=== PATIENT | male | born 1950 | race Caucasian/White ===

== ENCOUNTER 2022-07-01 13:56 | Outpatient (RCR) | payer MEDICARE | END 2022-07-30 | LOC: RESP 13:56 | DX: J44.9 Chronic obstructive pulmonary disease, unspecified (principal) | CPT/HCPCS: 94799 ==

== ENCOUNTER 2022-07-31 08:57 | Outpatient (RCR) | payer MEDICARE | END 2022-08-29 | LOC: RESP 08:57 | PROVIDERS: ATTEND Internal Medicine | DX: J43.9 Emphysema, unspecified (principal) | CPT/HCPCS: 94626 ×8; G0238 ×8 ==

== ENCOUNTER 2022-12-01 11:48 | Outpatient (RCR) | payer MEDICARE | END 2022-12-30 | LOC: RESP 11:48 | PROVIDERS: ATTEND Internal Medicine | DX: J44.9 Chronic obstructive pulmonary disease, unspecified (principal) | CPT/HCPCS: 94626 ×6; G0238 ×6 ==

== ENCOUNTER 2023-01-01 13:16 | Outpatient (RCR) | payer MEDICARE | END 2023-01-29 | LOC: RESP 13:16 | PROVIDERS: ATTEND Internal Medicine | DX: J43.9 Emphysema, unspecified (principal) | CPT/HCPCS: 94626 ×5; G0238 ×5 ==

== ENCOUNTER 2023-06-02 12:17 | Outpatient (RCR) | payer MEDICARE | END 2023-06-30 | LOC: RESP 12:17 | PROVIDERS: ATTEND Internal Medicine | DX: J43.9 Emphysema, unspecified (principal) | CPT/HCPCS: 94626 ×5; G0238 ×5 ==